=== PATIENT | female | born 1990 | race Caucasian/White ===

== ENCOUNTER 2017-11-18 00:28 | Emergency (ER) | payer OTHER ==
[~2017-11-18] VITALS: Ht 162.6 cm; Wt 101.5 kg
[~2017-11-18 00:28] MED LIST: ALBU1AER9 INH
[2017-11-18 00:34] VITALS: TEMP 36.6; Ht 162.6 cm; Wt 101.5 kg
[2017-11-18] MEDS ORDERED: SODIUM CHLORIDE 0.9% 1000ML 1,000 ML IV STA (00:42)
[2017-11-18 01:12] LABS: BASO % 0.3 %; BASO ABS # 0.02 K/uL (0-0.2); EOS % 4.2 %; EOS ABS # 0.29 K/uL (0-0.5); HEMOGLOBIN 12.9 g/dL (12.0-16.0); IG# 0.01 K/uL (0.00-0.02); LYMPH % 35.1 %; LYMPH ABS # 2.42 K/uL (1.2-3.4); MEAN CORPUSCULAR HGB CONC 34.9 g/dl (32-36); MEAN PLATELET VOLUME 8.9 fL (7.4-10.4); MONO % 6.7 %; MONO ABS # 0.46 K/uL (0.11-0.59); NEUT % 53.6 %; NEUT ABS # 3.69 K/uL (1.4-6.5); PLATELET COUNT 244 K/uL (130-400); RED CELL DISTRIBUTION WIDTH CV 13.1 % (11.5-14.5); RED CELL DISTRIBUTION WIDTH SD 41.2 fL (36.4-46.3); WHITE BLOOD COUNT 6.89 K/uL (4.8-10.8)
[2017-11-18 01:22] LABS: PTT PATIENT 28.1 SECONDS (21.0-31.0)
[2017-11-18 01:29] LABS: ALBUMIN 3.1 gm/dl (3.4-5.0); CALCIUM 8.5 mg/dl (8.5-10.1); CREATININE 0.66 mg/dl (0.60-1.20); POTASSIUM 3.4 mmol/L (3.5-5.1)
[2017-11-18 01:31] LABS: TOTAL PROTEIN 7.2 gm/dl (6.4-8.2)
[2017-11-18 01:33] VITALS: O2SAT 98
[2017-11-18] MEDS ORDERED: ONDA4TAB46 PO (01:58)
[2017-11-18] MEDS ORDERED: POTASSIUM CHLORIDE 10 MEQ TABCR PO STA (01:58)
[2017-11-18] MEDS ORDERED: PYRI1TAB40 PO (02:00)
[2017-11-18] MEDS ORDERED: BUSP15TA70 PO (02:02)
[2017-11-18] MEDS ORDERED: DOCU-94 PO (02:04)
[2017-11-18] MEDS ORDERED: PEDICHW44 PO (02:05)
--- NOTE | 2017-11-18 02:58 | EMERGENCY ROOM VISIT NOTE ---
History First contact with patient: 00:38 Chief Complaint: ED VAG BLEEDING Stated Complaint: 11 WKS , BLEEDING History of Present Illness The patient is a 27 year old female who presents to the Emergency Room with complaints of vaginal bleeding cramping for the past few hours who is currently 11 weeks . This is her third . 2 living children. She follows with [facility]. She had some spotting last week and had a normal pelvic ultrasound that showed a viable IUP. She has never needed RhoGam in the past. Patient denies chest pain, dyspnea, fever, chills, vomiting, diarrhea, urinary symptoms. No injury to the area. Review of Systems An 10 system review of systems was completed with positives and pertinent negatives listed in the HPI. Past Medical/Surgical History Medical Problems: (1) Abnormal vaginal bleeding (2) Asthma (3) Bronchitis (4) Heart murmur Surgical Problems: (1) Previous section Social History Smoking Status: Never Smoker Alcohol Use: occasionally Marital Status: Housing Status: lives with family Occupation Status: employed Current/Historical Medications Scheduled Buspirone Hcl (Buspar), 7.5 MG PO BID Ondansetron Hcl (Zofran), 4 MG PO TID Pediatric Multiple Vitamins W/ (Flintstones Plus Iron), 2 TABS PO DAILY Pyridoxine HCl (Vitamin B6), 25 MG PO TID Scheduled PRN Docusate Sodium (Colace), 100-200 MG PO DAILY PRN for Constipation Physical Exam Vital Signs Date Time Temp Pulse Resp B/P (MAP) Pulse Ox O2 Delivery O2 Flow Rate FiO2 11/18/17 02:11 75 16 149/78 98 Room Air 11/18/17 01:35 76 11/18/17 01:33 98 Room Air 11/18/17 01:33 80 19 148/76 98 Room Air 11/18/17 00:34 36.6 92 20 130/79 98 Room Air Physical Exam VITALS: Vitals are noted on the nurse's note and reviewed by myself. Vital signs stable. GENERAL: Pleasant female in tears, in no acute distress, nondiaphoretic, well- developed well-nourished. SKIN: Capillary reflex less than 2 seconds. HEENT: Normocephalic. PERRLA. EOMI. Nares patent. Mucous membranes moist. Neck is supple without nuchal rigidity. HEART: Regular rate and rhythm without murmurs gallops or rubs. LUNGS: Clear to auscultation bilaterally without wheezes, rales or rhonchi. No retractions or accessory muscle use. ABDOMEN: Positive bowel sounds x 4. Normal tympanic percussion. Soft, nontender, without masses or organomegaly. Perez sign negative. No guarding or rebound tenderness. No CVA tenderness MUSCULOSKELETAL: No gross musculoskeletal defects. No pedal edema. No calf tenderness. NEURO: Patient was alert and oriented to person place and time. Normal sensation to light and sharp touch. No focal neurological deficits. Medical Decision & Procedures Laboratory Results 11/18/17 01:02 Red Blood Count 4.30, Mean Corpuscular Volume 86.0, Mean Corpuscular Hemoglobin 30.0, Mean Corpuscular Hemoglobin Concent 34.9, Mean Platelet Volume 8.9, Neutrophils (%) (Auto) 53.6, Lymphocytes (%) (Auto) 35.1, Monocytes (%) (Auto) 6.7, Eosinophils (%) (Auto) 4.2, Basophils (%) (Auto) 0.3, Neutrophils # (Auto) 3.69, Lymphocytes # (Auto) 2.42, Monocytes # (Auto) 0.46, Eosinophils # (Auto) 0.29, Basophils # (Auto) 0.02 11/18/17 01:02 Test 11/18/17 01:02 11/18/17 02:00 White Blood Count 6.89 K/uL (4.8-10.8) Red Blood Count 4.30 M/uL (4.2-5.4) Hemoglobin 12.9 g/dL (12.0-16.0) Hematocrit 37.0 % (37-47) Mean Corpuscular Volume 86.0 fL (80-100) Mean Corpuscular Hemoglobin 30.0 pg (25-34) Mean Corpuscular Hemoglobin Concent 34.9 g/dl (32-36) Platelet Count 244 K/uL (130-400) Mean Platelet Volume 8.9 fL (7.4-10.4) Neutrophils (%) (Auto) 53.6 % Lymphocytes (%) (Auto) 35.1 % Monocytes (%) (Auto) 6.7 % Eosinophils (%) (Auto) 4.2 % Basophils (%) (Auto) 0.3 % Neutrophils # (Auto) 3.69 K/uL (1.4-6.5) Lymphocytes # (Auto) 2.42 K/uL (1.2-3.4) Monocytes # (Auto) 0.46 K/uL (0.11-0.59) Eosinophils # (Auto) 0.29 K/uL (0-0.5) Basophils # (Auto) 0.02 K/uL (0-0.2) RDW Standard Deviation 41.2 fL (36.4-46.3) RDW Coefficient of Variation 13.1 % (11.5-14.5) Immature Granulocyte % (Auto) 0.1 % Immature Granulocyte # (Auto) 0.01 K/uL (0.00-0.02) Prothrombin Time 10.4 SECONDS (9.0-12.0) Prothromb Time International Ratio 1.0 (0.9-1.1) Activated Partial Thromboplast Time 28.1 SECONDS (21.0-31.0) Partial Thromboplastin Ratio 1.1 Anion Gap 7.0 mmol/L (3-11) Est Creatinine Clear Calc Drug Dose 147.1 ml/min Estimated GFR () 139.3 Estimated GFR (Non- 120.2 BUN/Creatinine Ratio 14.0 (10-20) Calcium Level 8.5 mg/dl (8.5-10.1) Total Bilirubin 0.2 mg/dl (0.2-1) Aspartate Amino Transf (AST/SGOT) 14 U/L (15-37) Alanine Aminotransferase (ALT/SGPT) 21 U/L (12-78) Alkaline Phosphatase 59 U/L (45-117) Total Protein 7.2 gm/dl (6.4-8.2) Albumin 3.1 gm/dl (3.4-5.0) Globulin 4.1 gm/dl (2.5-4.0) Albumin/Globulin Ratio 0.8 (0.9-2) Human Chorionic Gonadotropin, Quant 19284 mIU/mL Urine Color YELLOW Urine Appearance CLEAR (CLEAR) Urine pH 5.5 (4.5-7.5) Urine Specific [place] 1.015 (1.000-1.030) Urine Protein NEG (NEG) Urine Glucose (UA) NEG (NEG) Urine Ketones NEG (NEG) Urine Occult Blood 3+ (NEG) Urine Nitrite NEG (NEG) Urine Bilirubin NEG (NEG) Urine Urobilinogen NEG (NEG) Urine Leukocyte Esterase NEG (NEG) Urine WBC (Auto) 1-5 /hpf (0-5) Urine RBC (Auto) 0-4 /hpf (0-4) Urine Hyaline Casts (Auto) 0 /lpf (0-5) Urine Epithelial Cells (Auto) >30 /lpf (0-5) Urine Bacteria (Auto) NEG (NEG) Medications Administered Medications (Trade) Dose Ordered Sig/Farhat Route Start Time Stop Time Status Last Admin Dose Admin Sodium Chloride 1,000 ml @ 999 mls/hr Q1H1M STAT IV 11/18/17 00:42 11/18/17 01:42 DC 11/18/17 01:12 999 MLS/HR Potassium Chloride (Klor-Con M10) 10 meq NOW STAT PO 11/18/17 01:58 11/18/17 01:59 DC 11/18/17 02:04 10 MEQ ED Course Prior records/ancillary studies reviewed. Triage Nursing notes reviewed. The patient's history was concerning for vaginal bleeding and abdominal pain. Differential diagnosis: Etiologies such as miscarriage, incomplete miscarriage, subchorionic hemorrhage , ectopic , dysfunction uterine bleeding, bleeding dyscrasia, trauma, infection, as well as others were entertained. Physical examination: As above. Vitals signs revealed stable. ER treatment provided: IV fluids On reassessment the patient felt better. Diagnostic interpretation by me: The labs revealed the patient to the Rh O+. CBC stable Urinalysis revealed no sign of infection. [place] [address] Imaging studies: Ultrasound as above US OB 1st TRIMESTER: Single live intrauterine gestation at 11 weeks 5 days based on crown-rump length. heart rate 172 bpm. Yolk sac is visualized and normal. Cervix appears closed. Posterior aspect the uterus is somewhat bulbous in appearance, possibly representing a [place] contraction. Recommend close attention to this on follow-up exams. Bilateral ovaries not visualized. Radiologist: Jung Abdul MD This appears to be consistent with threatened miscarriage. by the evaluation outlined above emergent etiologies such as bleeding dyscrasia, ectopic , trauma, as well as others were deemed relatively unlikely. Patient was neurovascularly and neurologically intact. She is well-appearing. She was afebrile nontoxic. She did not have an acute abdomen on exam. She was not hemorrhaging. She was advised no strenuous activity or intercourse until cleared by PUBLICITY AGENT. She is advised to call in the morning to make a follow-up within the next day or 2 with OB or to return to the ER meaty for heavy bleeding , pain, fevers, worsening signs or symptoms or as needed. The pt informed about the findings as listed above. All questions were answered and pleased with the treatment. Return instructions were outlined and the patient was discharged in stable condition. Referral: The patient was referred to PUBLICITY AGENT for follow-up in 2 to 3 days for a recheck of her current condition. Case reviewed with my attending The chart was completed utilizing [employer] Speech voice recognition software. Grammatical errors, random word insertions, pronoun errors, and incomplete sentences are an occassional consequence of this system due to software limitations, ambient noise, and hardware issues. Any formal questions or concerns about the content, text, or information contained within the body of this dictation should be directly addressed to the physician bilingual executive assistant for clarification. Medical Decision As above Medication Reconcilliation Current Medication List: was personally reviewed by me Blood Pressure Screening Patient's blood pressure: Normal blood pressure Impression Primary Impression: Threatened miscarriage Additional Impression: Hypokalemia Departure Information Dispostion Home / Self-Care Condition GOOD Referrals No Doctor, Assigned (PCP) Patient Instructions My [facility] Additional Instructions Rest. Stay well hydrated. No strenuous activity or intercourse until cleared by PUBLICITY AGENT. Acetaminophen(Tylenol) may be used for fever or pain. Use 1000mg every six hours as needed. Avoid using more than 3000mg in a 24 hour period. Rest and drink plenty of fluids as tolerated. Continue current medications. Return to the ER immediately for worsening or persistent heavy vaginal bleeding , abdominal pain, vomiting, fevers, chest pains, difficulty breathing, worsening of your condition, or as needed. Follow up with your PUBLICITY AGENT in 2-3 days for a recheck of your current condition. Problem Qualifiers
[2017-11-18 03:00] VITALS: BP 138/78; PULSE 80; O2SAT 98
--- NOTE | 2017-11-18 06:29 | DIAGNOSTIC IMAGING REPORT ---
<14 WKS SINGLE CLINICAL HISTORY: 11 wks preg, bleed pain TECHNIQUE: Ultrasound COMPARISON STUDY: None FINDINGS: Single, viable intrauterine . Estimated gestational age 11 weeks 5 days. A heart rate is confirmed at 172 bpm. IMPRESSION: Single, viable intrauterine of 11 weeks 5 days gestational age. The above report was generated using voice recognition software. It may contain grammatical, syntax or spelling errors. Electronically signed by: Diaz Rios M.D. 11/18/2017 6:27 AM Dictated Date/Time: 11/18/2017 6:27 AM
== END 2017-11-18 03:00 | disposition home or self-care (01) ==
LOC: C.EDB 00:29
DX: O20.0 Threatened abortion (principal); O99.281 Endocrine, nutritional and metabolic diseases complicating pregnancy, first trimester; E87.6 Hypokalemia; Z3A.11 11 weeks gestation of pregnancy

== ENCOUNTER 2018-04-22 16:45 | Outpatient (CLI) | payer OTHER ==
[~2018-04-22 16:45] MED LIST changes: -ALBU1AER9 INH; +BUSP15TA70 PO; +DOCU-94 PO; +ONDA4TAB46 PO; +PEDICHW44 PO; +PYRI1TAB40 PO
--- NOTE | 2018-04-22 18:45 | Progress Note ---
Progress Note Date of Service Apr 22, 2018. Progress Note Outpatient Note 28 F P2002 at 33.2 weeks seen on L&D for increased pressure. No active regular contractions on monitor. FHT Cat 1. No RUQ or abdominal pain. No edema of lower extremities. BP stable and urine protein is negative. Cervix closed and thick. Will discharge home with follow up in office next week.
== END 2018-04-22 18:50 | disposition home or self-care (01) ==
LOC: C.LD 16:45 → C.OPB 16:45
PROVIDERS: ATTEND Obstetrics & Gynecology
DX: O26.893 Other specified pregnancy related conditions, third trimester (principal); R10.9 Unspecified abdominal pain; Z3A.33 33 weeks gestation of pregnancy

== ENCOUNTER 2023-10-29 19:28 | Inpatient (IN) ==
[2023-10-29 20:13] LABS: Basophils # (auto) 0.06 K/uL (0.00-0.20); Basophils % (auto) 0.6 %; Eosinophils # (auto) 0.22 K/uL (0.00-0.50); Eosinophils % (auto) 2.4 %; Hematocrit (blood only) 33.6 % (37.0-47.0); Hemoglobin 10.8 g/dl (12.0-16.0); Immature Granulocytes # (auto) 0.02 K/uL (0.01-0.20); Immature Granulocytes % (auto) 0.2 %; Lymphocytes # (auto) 3.08 K/uL (1.20-3.40); Lymphocytes % (auto) 32.9 %; Mean Corpuscular Hemoglobin 26.5 pg (25.0-34.0); Mean Corpuscular Hgb Conc 32.1 g/dL (32.0-36.0); Mean Corpuscular Volume 82.6 fL (80.0-100.0); Mean Platelet Volume 8.8 fL (9.4-12.4); Monocytes # (auto) 0.65 K/uL (0.11-0.59); Neutrophils # (auto) 5.32 K/uL (1.40-6.50); Neutrophils % (auto) 56.9 %; Platelet Count 383 K/uL (130-400); RDW Coefficient of Variation 14.3 % (11.5-14.5); RDW Standard Deviation 42.8 fL (36.4-46.3); Red Blood Count 4.07 M/uL (4.20-5.40); White Blood Count 9.35 K/ul (4.8-10.8)
[2023-10-29 20:27] LABS: Partial Thromboplastin Ratio 1.3; Partial Thromboplastin Time 37 Seconds (21-31); Prothrombin Time 10.9 Seconds (9.0-12.0)
[2023-10-29 20:29] LABS: Anion Gap 10 (3-11); Bilirubin,Total 0.2 mg/dl (0.2-1.0); Calcium 9.1 mg/dl (8.6-10.3); Carbon Dioxide 22 mmol/L (21-32); Chloride 104 mmol/L (98-107); Potassium 3.7 mmol/L (3.5-5.1); Sodium 136 mmol/L (136-145)
[2023-10-29 20:35] LABS: Alanine Aminotransferase 12 U/L (7-52); Albumin Globulin Ratio 1.1 (0.9-2); Alkaline Phosphatase 76 U/L (34-104); Aspartate Aminotransferase 14 U/L (13-39); BUN Creatinine Ratio 16.9 (10-20); Blood Urea Nitrogen 12 mg/dl (6-23); Creatinine Clr Calc Pharmacy 127.3 ml/min; Est GFR (African American) 128.8 ml/min; Est GFR (Non-African American) 111.1 ml/min; Globulin 3.5 gm/dl (2.5-4.0); Glucose 130 mg/dl (70-99(Fasting)); Total Protein 7.5 gm/dl (6.0-8.3)
[2023-10-29 20:40] LABS: Troponin I High Sensitivity < 2.3 pg/ml (0-14)
[2023-10-29] MEDS: SODIUM CHLORIDE 0.9% 1,000 ML IV ONE (22:17)
[2023-10-29] MEDS: METOCLOPRAMIDE HCL INJ 5 MG/ML 2 ML VIAL IV STA (22:19)
[2023-10-29] MEDS: diphenhydrAMINE 50 MG/ML VIAL IV STA (22:20)
--- NOTE | 2023-10-29 23:20 | Emergency Department Note ---
History of Present Illness General Chief complaint: Pain (Generalized) Stated complaint: POST SX HAS HEADACHE Time Seen by Provider: 10/29/23 21:59 History of Present Illness Maximum Pain Intensity: 7 This 33-year-old female had a hysterectomy 2 weeks ago by [employer] presents the ER complaining of headache, chest pain and right calf pain. She states she called her OB and was advised to come to the ER. Patient denies fever, chills, abdominal pain, flank pain, flulike illness, neck stiffness. Home Medications Medication Instructions Recorded Confirmed Type acetaminophen 500 mg tablet 1,000 mg PO Q6H PRN Fever Or Pain 07/31/20 10/30/23 History bupropion HCl 150 mg tablet,12 hr 150 mg PO BID 10/08/23 10/30/23 History sustained-release (Wellbutrin SR) fluoxetine 60 mg tablet 60 mg PO QPM 10/08/23 10/30/23 History naltrexone 50 mg tablet 50 mg PO BID 10/08/23 10/30/23 History rizatriptan 10 mg tablet (Maxalt) 10 mg PO DIRECTED PRN Migraine 10/08/23 10/30/23 History Headache topiramate 25 mg tablet (Topamax) 25 mg PO QPM 10/08/23 10/30/23 History trazodone 50 mg tablet 50 mg PO HS PRN Sleep 10/08/23 10/30/23 History Allergies Allergy/AdvReac Type Severity Reaction Status Date / Time latex Allergy Intermediate Hives Verified 10/30/23 00:44 Past Med/Surg History Medical History Abnormal uterine bleeding (AUB) History of migraine Anxiety Obesity per pt, reason for naltrexone History of blood transfusion 2007 with delivery Heart murmur History of years ago with only; no current murmur per patient Surgical History History of bilateral breast implants History of foot surgery Rt Nausea and vomiting after administration of anesthetic agent Patient reports nausea with Anesthesia History of section x3 Family History Father Family history of diabetes mellitus Social History Smoking Status: Never smoker Second Hand Exposure: Yes; Do You Dip or Chew Tobacco: No; Hx Alcohol Use: Yes Hx Substance Use: No Preferred Language: Somali Communication Ability: Effective Stem Maker Required: No Beliefs That Will Affect Care: None marital status: Current Living Situation: Family Feels Safe at Home: Yes Assistive Devices: Glasses Review of Systems A total of 10 systems reviewed and were otherwise negative Physical Exam Vital Signs Vital Signs - 24 hr 10/29/23 19:43 10/29/23 22:03 10/29/23 22:15 Temperature 37.2 C Temperature Source Temporal Artery Scan Pulse Rate 92 H Pulse Rate [Apical] 75 Pulse Rhythm [Apical] Regular Pulse Strength [Apical] Normal Respiratory Rate 16 19 Respiratory Effort / Characteristics Non-Labored Spontaneous Respiratory Depth Normal Respiratory Pattern Regular Blood Pressure 148/86 H Blood Pressure [Right Arm] 150/83 H Blood Pressure Mean 106 Blood Pressure Mean [Right Arm] 105 Blood Pressure Position [Right Arm] Semi-fowlers Pulse Oximetry 99 98 98 Oxygen Delivery Method Room Air Room Air Room Air Sepsis New/Unexplained Change in Mental Status No Sepsis Action Taken by Nursing No Action Required 10/29/23 22:23 10/30/23 00:41 10/30/23 00:44 Temperature Temperature Source Pulse Rate 80 Pulse Rate [Apical] 74 Pulse Rhythm [Apical] Pulse Strength [Apical] Respiratory Rate 18 Respiratory Effort / Characteristics Respiratory Depth Respiratory Pattern Blood Pressure Blood Pressure [Right Arm] 112/78 Blood Pressure Mean Blood Pressure Mean [Right Arm] 89 Blood Pressure Position [Right Arm] Sitting Pulse Oximetry 98 98 Oxygen Delivery Method Room Air Room Air Sepsis New/Unexplained Change in Mental Status Sepsis Action Taken by Nursing VITALS: Vitals are noted on the nurse's note and reviewed by myself. Vital signs stable. GENERAL: Pleasant female, in no acute distress, nondiaphoretic, well-developed well-nourished. SKIN: Capillary reflex less than 2 seconds. HEENT: Normocephalic. PERRLA. EOMI. Nares patent. Mucous membranes moist. Neck is supple without nuchal rigidity. HEART: Regular rate and rhythm LUNGS: Clear to auscultation bilaterally without wheezes, rales or rhonchi. No retractions or accessory muscle use. ABDOMEN: Positive bowel sounds x 4. Normal tympanic percussion. Soft, nontender, without masses or organomegaly. Perez sign negative. No guarding or rebound tenderness. no CVA tenderness MUSCULOSKELETAL: No gross musculoskeletal defects. Right calf tender, left calf nontender NEURO: Patient was alert and oriented to person place and time. No focal neurological deficits. Course Administered Medications Discontinued Medications Diphenhydramine HCl (Diphenhydramine 50 Mg/Ml Vial) 25 mg IV NOW STA Stop: 10/29/23 22:11 Last Admin: 10/29/23 22:20 Dose: 25 mg Documented By: JANES Sodium Chloride (Nss) 1,000 mls @ 999 mls/hr IV .Q1H1M ONE Stop: 10/29/23 23:10 Last Infusion: 10/30/23 00:45 Dose: Infused Documented By: Admin: 10/29/23 22:17 Dose: 999 mls/hr Documented By: JANES Acetaminophen (Ofirmev) 1,000 mg in 100 mls @ 400 mls/hr IV NOW STA Stop: 10/29/23 23:47 Last Infusion: 10/30/23 01:13 Dose: Infused Documented By: Admin: 10/30/23 00:27 Dose: 400 mls/hr Documented By: ALFIE Ioversol (Optiray 320 125ml) 117 ml IV ONCE ONE Stop: 10/29/23 23:25 Last Admin: 10/29/23 23:25 Dose: 117 ml Documented By: NATANAEL Metoclopramide HCl (Metoclopramide Hcl Inj 5 Mg/Ml 2 Ml Vial) 10 mg IV NOW STA Stop: 10/29/23 22:11 Last Admin: 10/29/23 22:19 Dose: 10 mg Documented By: JANES Medical Decision Making Medical Records Attestation: I reviewed the patient's medical records. Home Medications Current Medication List: was personally reviewed by me Laboratory Data Attestation: I reviewed the patient's lab results. 10/29/23 20:01 10/29/23 20:01 Lab Results 10/29/23 10/30/23 10/30/23 Range/Units 20:01 00:04 00:56 WBC 9.35 (4.8-10.8) K/ul RBC 4.07 L (4.20-5.40) M/uL Hgb 10.8 L (12.0-16.0) g/dl Hct 33.6 L (37.0-47.0) % MCV 82.6 (80.0-100.0) fL MCH 26.5 (25.0-34.0) pg MCHC 32.1 (32.0-36.0) g/dL RDW Std Deviation 42.8 (36.4-46.3) fL RDW Coeff of Clint 14.3 (11.5-14.5) % Plt Count 383 (130-400) K/uL MPV 8.8 L (9.4-12.4) fL Immature Gran % (Auto) 0.2 % Neut % (Auto) 56.9 % Lymph % (Auto) 32.9 % [place] % (Auto) 7.0 % Eos % (Auto) 2.4 % Baso % (Auto) 0.6 % Neut # (Auto) 5.32 (1.40-6.50) K/uL Lymph # (Auto) 3.08 (1.20-3.40) K/uL [place] # (Auto) 0.65 H (0.11-0.59) K/uL Eos # (Auto) 0.22 (0.00-0.50) K/uL Baso # (Auto) 0.06 (0.00-0.20) K/uL Immature Gran # (Auto) 0.02 (0.01-0.20) K/uL PT 10.9 (9.0-12.0) Seconds INR 1.0 (0.9-1.1) APTT 37 H (21-31) Seconds PTT Ratio 1.3 Sodium 136 (136-145) mmol/L Potassium 3.7 (3.5-5.1) mmol/L Chloride 104 (98-107) mmol/L Carbon Dioxide 22 (21-32) mmol/L Anion Gap 10 (3-11) BUN 12 (6-23) mg/dl Creatinine 0.71 (0.6-1.2) mg/dl Est Cr Clr Drug Dosing 127.3 ml/min Est GFR ( Amer) 128.8 ml/min Est GFR (Non-Af Amer) 111.1 ml/min BUN/Creatinine Ratio 16.9 (10-20) Glucose 130 H (70-99(Fasting)) mg/dl Calcium 9.1 (8.6-10.3) mg/dl Total Bilirubin 0.2 (0.2-1.0) mg/dl AST 14 (13-39) U/L ALT 12 (7-52) U/L Alkaline Phosphatase 76 (34-104) U/L Troponin I High Sens < 2.3 < 2.3 (0-14) pg/ml B-Natriuretic Peptide 25 (0-100) pg/ml Total Protein 7.5 (6.0-8.3) gm/dl Albumin 4.0 (3.4-5.0) gm/dl Globulin 3.5 (2.5-4.0) gm/dl Albumin/Globulin Ratio 1.1 (0.9-2) Urine Color Dark Yellow Urine Appearance Cloudy A (Clear) Urine pH 5.5 (4.5-7.5) Ur Specific [place] 1.040 H (1.000-1.030) Urine Protein Negative (Negative) Urine Glucose (UA) Negative (Negative) Urine Ketones Trace H (Negative) Urine Blood 2+ H (Negative) Urine Nitrite Negative (Negative) Urine Bilirubin Negative (Negative) Urine Urobilinogen Negative (Negative) Ur Leukocyte Esterase Trace H (Negative) Urine WBC (Auto) 10-30 H (0-5) /hpf Urine RBC (Auto) 5-10 H (0-4) /hpf U Hyaline Cast (Auto) 5-10 H (0-5) /lpf U Epithel Cells (Auto) >30 H (0-5) /lpf Urine Bacteria (Auto) Negative (Negative) Urine Crystals Not Reportable Calcium Oxalate Crystal Present A (None Prsent) Imaging Data Attestation: I personally reviewed and interpreted this imaging study as follows: Radiologist's Impression: Chest CTA 10/29/23 22:10 Exam(s): CTA CHEST IV Amt: 117 ml opti 320 EXAM: CT Angiography Chest With Intravenous Contrast CLINICAL HISTORY: PE. TECHNIQUE: Axial computed tomographic angiography images of the chest with intravenous contrast. CTDI is 38 mGy and DLP is 846.84 mGy-cm. Automated exposure control was utilized for the study. A dose lowering technique was utilized adhering to the principles of ALARA. MIP reconstructed images were created and reviewed. COMPARISON: No relevant prior studies available. FINDINGS: Pulmonary arteries: Unremarkable. No pulmonary embolus. Aorta: No acute findings. No thoracic aortic aneurysm. Lungs: Interseptal thickening is concerning for pulmonary edema. No mass. Pleural space: Unremarkable. No significant effusion. No pneumothorax. Heart: Unremarkable. No cardiomegaly. No significant pericardial effusion. No evidence of RV dysfunction. Bones/joints: There are degenerative changes of the spine. No acute fracture. No dislocation. Soft tissues: Bilateral breast prosthesis are noted. Lymph nodes: Unremarkable. No enlarged lymph nodes. IMPRESSION: 1. No pulmonary embolus. 2. Interseptal thickening is concerning for pulmonary edema. Electronically signed by: Lizzy Laura MD 10/29/23 23:[address] 10/29/23 22:10 Exam(s): CT HEAD Without Contrast EXAM: CT Head Without Intravenous Contrast CLINICAL HISTORY: JEAN. TECHNIQUE: Axial computed tomography images of the head/brain without intravenous contrast. CTDI is 35.79 mGy and DLP is 546.36 mGy-cm. Automated exposure control was utilized for the study. A dose lowering technique was utilized adhering to the principles of ALARA. COMPARISON: No relevant prior studies available. FINDINGS: Brain: Unremarkable. No significant white matter disease. No intracranial hemorrhage, mass-effect or midline shift. No abnormal extra axial fluid. No evidence of acute infarct. Ventricles: Unremarkable. No ventriculomegaly. Bones/joints: Unremarkable. No acute fracture. Soft tissues: Unremarkable. Sinuses: Unremarkable as visualized. No acute sinusitis. Mastoid air cells: Unremarkable as visualized. No mastoid effusion. IMPRESSION: No acute intracranial finding. Electronically signed by: Lizzy Laura MD 10/29/23 23:43 PM Venous Doppler Study 10/30/23 22:10 Exam(s): US VENOUS RIGHT LOWER EXTREMITY EXAM: US Duplex Right Lower Extremity Veins CLINICAL HISTORY: Pain. TECHNIQUE: Real-time duplex ultrasound scan of the right lower extremity veins integrating B-mode two-dimensional vascular structure, Doppler spectral analysis, color flow Doppler imaging and compression. COMPARISON: No relevant prior studies available. FINDINGS: Deep veins: Unremarkable. No DVT in the visualized common femoral, femoral, proximal deep femoral or popliteal veins. The veins demonstrate normal color flow, are normally compressible, with normal phasic flow and/or augmentation response. Superficial veins: Unremarkable. No thrombus in the visualized great saphenous vein. Soft tissues: No acute findings. No popliteal cyst. IMPRESSION: No deep vein thrombosis of the right lower extremity. Electronically signed by: Lizzy Laura MD 10/30/23 00:32 AM MDM Narrative Prior records/ancillary studies reviewed. Triage Nursing notes reviewed. Additional history obtained from family. The patient's history was concerning for headache, calf pain and chest pain. Differential diagnosis: Etiologies such as postsurgical complication, migraine, neurologic, cardiac ischemia, aortic dissection, pulmonary embolism, pneumonia, pneumothorax, musculoskeletal, infections, pericarditis, myocarditis, esophageal rupture, gastrointestinal, as well as others were entertained. Physical examination: As above. ER treatment provided: An order was placed for continuous cardiac monitoring. The monitor shows a rate of 60-100 with a sinus rhythm per my interpretation. Reglan Benadryl IV fluids were ordered On reassessment the patient felt better. Diagnostic interpretation by me: The electrocardiogram was negative for pathologic change. Ordered for chest pain EKG: Normal sinus, normal intervals, no acute ST-T wave changes. Impression normal sinus rhythm independently interpreted by myself I think arrhythmia is unlikely. EKG shows normal sinus rhythm with no interval abnormalities such as QT prolongation or WPW. There are no findings to suggest Brugada syndrome. Cardiac monitoring in the emergency department reveals no tachycardic or bradycardic dysrhythmia. Hypertrophic cardiomyopathy was considered but there are no clear historical elements pointing toward this. EKG is not suggestive. The QRS voltage is not extremely large and there are no suggestive Q waves. The labs Independently Interpreted by myself revealed negative troponin x 2. Stable H&H Normal BNP Imaging studies: Chest x-ray with no acute consolidation, pneumothorax or free air per my endocrine interpretation CTA was reviewed Ultrasound negative for DVT Head CT was negative. HEART SCORE: Hx: high/mod/low suspicion: 0 ECG: ST depression/nonspecific changes/normal: 0 Age: Greater than 65/45-64/less than 45: 0 Risk factors: (Hypertension, hyperlipidemia, diabetes, coronary disease, tobacco use, cocaine use): 0 Troponin: Greater than 2 times normal limits/1-2 times normal limits/normal: 0 Total: 0 Consultation: A consultation was placed with the hospitalist. The case was discussed and diagnostics were reviewed. The patient was evaluated in the ER for further treatment. Exam and history seem consistent with new heart failure on imaging. Patient was not hypoxic. Initial troponin was negative. EKG is nonischemic medicine is consulted and case discussed. Patient be admitted to the medical service for further evaluation and workup.. By the evaluation outlined above emergent etiologies such as aortic dissection, pulmonary embolism, pneumonia, pneumothorax, infections, pericarditis, myocarditis, gastrointestinal, as well as others were deemed relatively unlikely. The pt informed about the findings as listed above. All questions were answered and pleased with the treatment. The chart was completed utilizing [employer] Speech voice recognition software. Grammatical errors, random word insertions, pronoun errors, and incomplete sentences are an occassional consequence of this system due to software limitations, ambient noise, and hardware issues. Any formal questions or concerns about the content, text, or information contained within the body of this dictation should be directly addressed to the physician construction management assistant for clarification. Impression & Plan New onset of congestive heart failure, Chest pain, Headache, Acute leg pain Discharge Plan Visit Data Chief Complaint: Pain (Generalized) Stated Complaint: POST SX HAS HEADACHE ED Provider: Enrrique Fernández ED Midlevel Provider: Kaylah Valenzuela Discharge Problem: New onset of congestive heart failure, Chest pain, Headache, Acute leg pain Patient Disposition: Admitted As Inpatient Condition: Good Forms Stand Alone Forms: Balance Financial Prescriptions Prescriptions: No Action acetaminophen 500 mg Tablet 1,000 mg PO Q6H PRN (Reason: Fever Or Pain) bupropion HCl [Wellbutrin SR] 150 mg Tablet Sustained-Release 12 Hr 150 mg PO BID trazodone 50 mg Tablet 50 mg PO HS PRN (Reason: Sleep) Rx Instructions: PER PT "HAVE BEEN TAKING ALMOST EVERY NIGHT". naltrexone 50 mg Tablet 50 mg PO BID rizatriptan [Maxalt] 10 mg Tablet 10 mg PO DIRECTED PRN (Reason: Migraine Headache) Rx Instructions: take 1 tab at onset of headache; if no relief may repeat 1 tab after at least 2 hrs; max = 3 tabs/24 hr topiramate [Topamax] 25 mg Tablet 25 mg PO QPM fluoxetine 60 mg Tablet 60 mg PO QPM Referrals Referrals: David Pinzon MD [Primary Care Provider] -
[2023-10-29] MEDS: OPTIRAY 320 125ml IV ONE (23:25)
--- NOTE | 2023-10-29 23:43 | CT Scan Report ---
Exam(s): CTA CHEST IV Amt: 117 ml opti 320 EXAM: CT Angiography Chest With Intravenous Contrast CLINICAL HISTORY: PE. TECHNIQUE: Axial computed tomographic angiography images of the chest with intravenous contrast. CTDI is 38 mGy and DLP is 846.84 mGy-cm. Automated exposure control was utilized for the study. A dose lowering technique was utilized adhering to the principles of ALARA. MIP reconstructed images were created and reviewed. COMPARISON: No relevant prior studies available. FINDINGS: Pulmonary arteries: Unremarkable. No pulmonary embolus. Aorta: No acute findings. No thoracic aortic aneurysm. Lungs: Interseptal thickening is concerning for pulmonary edema. No mass. Pleural space: Unremarkable. No significant effusion. No pneumothorax. Heart: Unremarkable. No cardiomegaly. No significant pericardial effusion. No evidence of RV dysfunction. Bones/joints: There are degenerative changes of the spine. No acute fracture. No dislocation. Soft tissues: Bilateral breast prosthesis are noted. Lymph nodes: Unremarkable. No enlarged lymph nodes. IMPRESSION: 1. No pulmonary embolus. 2. Interseptal thickening is concerning for pulmonary edema. Electronically signed by: Lizzy Laura MD 10/29/23 23:42 PM
--- NOTE | 2023-10-29 23:44 | CT Scan Report ---
Exam(s): CT HEAD Without Contrast EXAM: CT Head Without Intravenous Contrast CLINICAL HISTORY: JEAN. TECHNIQUE: Axial computed tomography images of the head/brain without intravenous contrast. CTDI is 35.79 mGy and DLP is 546.36 mGy-cm. Automated exposure control was utilized for the study. A dose lowering technique was utilized adhering to the principles of ALARA. COMPARISON: No relevant prior studies available. FINDINGS: Brain: Unremarkable. No significant white matter disease. No intracranial hemorrhage, mass-effect or midline shift. No abnormal extra axial fluid. No evidence of acute infarct. Ventricles: Unremarkable. No ventriculomegaly. Bones/joints: Unremarkable. No acute fracture. Soft tissues: Unremarkable. Sinuses: Unremarkable as visualized. No acute sinusitis. Mastoid air cells: Unremarkable as visualized. No mastoid effusion. IMPRESSION: No acute intracranial finding. Electronically signed by: Lizzy Laura MD 10/29/23 23:43 PM
[2023-10-30] MEDS: ACETAMINOPHEN 1,000 MG/100 ML VIAL IV STA (00:27)
--- NOTE | 2023-10-30 00:33 | Ultrasound Report ---
Exam(s): US VENOUS RIGHT LOWER EXTREMITY EXAM: US Duplex Right Lower Extremity Veins CLINICAL HISTORY: Pain. TECHNIQUE: Real-time duplex ultrasound scan of the right lower extremity veins integrating B-mode two-dimensional vascular structure, Doppler spectral analysis, color flow Doppler imaging and compression. COMPARISON: No relevant prior studies available. FINDINGS: Deep veins: Unremarkable. No DVT in the visualized common femoral, femoral, proximal deep femoral or popliteal veins. The veins demonstrate normal color flow, are normally compressible, with normal phasic flow and/or augmentation response. Superficial veins: Unremarkable. No thrombus in the visualized great saphenous vein. Soft tissues: No acute findings. No popliteal cyst. IMPRESSION: No deep vein thrombosis of the right lower extremity. Electronically signed by: Lizzy Laura MD 10/30/23 00:32 AM
[2023-10-30 01:13] LABS: Appearance Urine Cloudy (Clear); Bacteria Urine Automated Negative (Negative); Bilirubin Urine Negative (Negative); Blood Urine 2+ (Negative); Color Urine Dark Yellow; Epithelial Cell Urine Auto >30 /lpf (0-5); Glucose Urine UA Negative (Negative); Ketones Urine Trace (Negative); Leukocyte Esterase Urine Trace (Negative); Nitrite Urine Negative (Negative); Protein Urine Negative (Negative); Urobilinogen Urine Negative (Negative); pH Urine 5.5 (4.5-7.5)
[2023-10-30 01:27] LABS: Calcium Oxalate Crystals Urine Present (None Prsent)
--- NOTE | 2023-10-30 04:20 | History & Physical Report ---
Date of Service October 30, 2023 Assessment & Plan (1) Chest pain: Plan: 33-year-old female with past medical history significant for mitral valve regurgitation, obesity, dysthymia, generalized anxiety disorder who recently had a hysterectomy comes because of headache, mild chest discomfort and right leg pain started in the morning yesterday. Patient states when she came to the ER her headache was 9/10 by severity, chest pain was 1/10 with severity, right leg pain was 5 /10 in severity. Currently all the pain is resolved. Denies any blurred visions. No runny nose. No sore throat. No fever. No shortness of. No dizziness. No sweating. No nausea. Has some abdominal discomfort from recent surgery. Normal bowel movements. Normal bladder movements. Currently resting comfortably and hemodynamically stable. Imaging studies showed possible pulmonary edema. Chest pain Currently resolved EKG okay 2 sets of troponin negative CTA chest no PE but concerning for pulmonary edema Will follow serial enzymes and echo Cardiac consult in a.m. Possible pulmonary edema Patient has no shortness of breath Will follow echo Consult cardiology further recommendations Headache Currently resolved Right leg pain Currently resolved Doppler negative for DVT Dysthymia Generalized anxiety disorder Continue home meds DVT prophylaxis SCDs for now Disposition Telemetry Full code History of Present Illness Chief Complaint: Headache, chest pain, right leg pain Primary Care Provider: David Pinzon MD 33-year-old female with past medical history significant for mitral valve regurgitation, obesity, dysthymia, generalized anxiety disorder who recently had a hysterectomy comes because of headache, mild chest discomfort and right leg pain started in the morning yesterday. Patient states when she came to the ER her headache was 9/10 by severity, chest pain was 1/10 with severity, right leg pain was 5 /10 in severity. Currently all the pain is resolved. Denies any blurred visions. No runny nose. No sore throat. No fever. No shortness of. No dizziness. No sweating. No nausea. Has some abdominal discomfort from recent surgery. Normal bowel movements. Normal bladder movements. Currently resting comfortably and hemodynamically stable. Imaging studies showed possible pulmonary edema. Past medical history. As mentioned above Past surgical history. . Incision of the right foot. Likely floaters. Vaginal hysterectomy 10/15/2023. Social history. . Quit smoking in 2010. Smoked 0.5 pack a day for 5 years. No alcohol use. No drug use. Family history. Mother has allergies. Father has diabetes. Paternal grandmother had breast cancer. Allergies Allergy/AdvReac Type Severity Reaction Status Date / Time latex Allergy Intermediate Hives Verified 10/30/23 00:44 Home Medications Medication Instructions Recorded Confirmed Type acetaminophen 500 mg tablet 1,000 mg PO Q6H PRN Fever Or Pain 07/31/20 10/30/23 History bupropion HCl 150 mg tablet,12 hr 150 mg PO BID 10/08/23 10/30/23 History sustained-release (Wellbutrin SR) fluoxetine 60 mg tablet 60 mg PO QPM 10/08/23 10/30/23 History naltrexone 50 mg tablet 50 mg PO BID 10/08/23 10/30/23 History rizatriptan 10 mg tablet (Maxalt) 10 mg PO DIRECTED PRN Migraine 10/08/23 10/30/23 History Headache topiramate 25 mg tablet (Topamax) 25 mg PO QPM 10/08/23 10/30/23 History trazodone 50 mg tablet 50 mg PO HS PRN Sleep 10/08/23 10/30/23 History Past Med/Surg History Medical History Abnormal uterine bleeding (AUB) History of migraine Anxiety Obesity per pt, reason for naltrexone History of blood transfusion 2007 with delivery Heart murmur History of years ago with only; no current murmur per patient Surgical History History of bilateral breast implants History of foot surgery Rt Nausea and vomiting after administration of anesthetic agent Patient reports nausea with Anesthesia History of section x3 Family History Father Family history of diabetes mellitus Social History Smoking Status: Never smoker Second Hand Exposure: Yes; Do You Dip or Chew Tobacco: No; Hx Alcohol Use: Yes Hx Substance Use: No Preferred Language: Turkish Communication Ability: Effective Alarm Signal Operator Required: No Beliefs That Will Affect Care: None marital status: Current Living Situation: Family Feels Safe at Home: Yes Safety Concerns: Feels Safe At This Time Assistive Devices: Glasses Review of Systems Review of Systems: All systems reviewed & are unremarkable except as noted in HPI & below Physical Exam Physical Exam: General- Not in distress Head- atraumatic Eyes- PERRL. ENT- oropharynx clear Neck- supple, no JVD. Lungs- clear to auscultation no wheezing or crackles. Heart- regular rhythm; no murmur, no gallop. Abdomen- normal bowel sounds, soft, nontender, no distension Extremities- no pretibial edema, no erythema seen. Neuro- alert, oriented ; PERRL, no facial palsy; no dysarthria; moves extremities. Skin- warm & dry Results & Data Results & Data Vital Signs (Past 12 Hours) Vital Signs Temp Pulse Pulse Resp BP BP Pulse Ox 10/30/23 04:02 63 16 120/60 96 10/30/23 02:13 67 10/30/23 02:12 66 18 132/62 95 10/30/23 00:44 98 10/30/23 00:41 74 18 112/78 98 10/29/23 22:23 80 10/29/23 22:15 98 10/29/23 22:03 75 19 150/83 H 98 10/29/23 19:43 37.2 C 92 H 16 148/86 H 99 O2 Del Method 10/30/23 04:02 Room Air 10/30/23 02:13 10/30/23 02:12 Room Air 10/30/23 00:44 Room Air 10/30/23 00:41 Room Air 10/29/23 22:23 10/29/23 22:15 Room Air 10/29/23 22:03 Room Air 10/29/23 19:43 Room Air Diagnostic Findings Laboratory Results WBC 9.35 K/ul (4.8-10.8) 10/29/23 20:01 RBC 4.07 M/uL (4.20-5.40) L 10/29/23 20:01 Hgb 10.8 g/dl (12.0-16.0) L 10/29/23 20:01 Hct 33.6 % (37.0-47.0) L 10/29/23 20:01 MCV 82.6 fL (80.0-100.0) 10/29/23 20:01 MCH 26.5 pg (25.0-34.0) 10/29/23 20: MCHC 32.1 g/dL (32.0-36.0) 10/29/23 20: RDW Std Deviation 42.8 fL (36.4-46.3) 10/29/23 20: RDW Coeff of Clint 14.3 % (11.5-14.5) 10/29/23 20: Plt Count 383 K/uL (130-400) 10/29/23 20: MPV 8.8 fL (9.4-12.4) L 10/29/23 20: Immature Gran % (Auto) 0.2 % 10/29/23 20: Neut % (Auto) 56.9 % 10/29/23 20: Lymph % (Auto) 32.9 % 10/29/23 20: Milam % (Auto) 7.0 % 10/29/23 20: Eos % (Auto) 2.4 % 10/29/23 20: Baso % (Auto) 0.6 % 10/29/23 20:01 Neut # (Auto) 5.32 K/uL (1.40-6.50) 10/29/23 20:01 Lymph # (Auto) 3.08 K/uL (1.20-3.40) 10/29/23 20:01 Milam # (Auto) 0.65 K/uL (0.11-0.59) H 10/29/23 20:01 Eos # (Auto) 0.22 K/uL (0.00-0.50) 10/29/23 20:01 Baso # (Auto) 0.06 K/uL (0.00-0.20) 10/29/23 20: Immature Gran # (Auto) 0.02 K/uL (0.01-0.20) 10/29/23 20: PT 10.9 Seconds (9.0-12.0) 10/29/23 20: INR 1.0 (0.9-1.1) 10/29/23 20: APTT 37 Seconds (21-31) H 10/29/23 20: PTT Ratio 1.3 10/29/23 20: Sodium 136 mmol/L (136-145) 10/29/23 20:01 Potassium 3.7 mmol/L (3.5-5.1) 10/29/23 20:01 Chloride 104 mmol/L (98-107) 10/29/23 20:01 Carbon Dioxide 22 mmol/L (21-32) 10/29/23 20:01 Anion Gap 10 (3-11) 10/29/23 20:01 BUN 12 mg/dl (6-23) 10/29/23 20:01 Creatinine 0.71 mg/dl (0.6-1.2) 10/29/23 20: Est Cr Clr Drug Dosing 127.3 ml/min 10/29/23 20:01 Est GFR ( Amer) 128.8 ml/min 10/29/23 20:01 Est GFR (Non-Af Amer) 111.1 ml/min 10/29/23 20:01 BUN/Creatinine Ratio 16.9 (10-20) 10/29/23 20:01 Glucose 130 mg/dl (70-99(Fasting)) H 10/29/23 20: Calcium 9.1 mg/dl (8.6-10.3) 10/29/23 20: Total Bilirubin 0.2 mg/dl (0.2-1.0) 10/29/23 20: AST 14 U/L (13-39) 10/29/23 20: ALT 12 U/L (7-52) 10/29/23 20:01 Alkaline Phosphatase 76 U/L (34-104) 10/29/23 20:01 Troponin I High Sens < 2.3 pg/ml (0-14) 10/30/23 00:56 B-Natriuretic Peptide 25 pg/ml (0-100) 10/30/23 00:56 Total Protein 7.5 gm/dl (6.0-8.3) 10/29/23 20:01 Albumin 4.0 gm/dl (3.4-5.0) 10/29/23 20: Globulin 3.5 gm/dl (2.5-4.0) 10/29/23 20:01 Albumin/Globulin Ratio 1.1 (0.9-2) 10/29/23 20:01 Urine Color Dark Yellow 10/30/23 00:04 Urine Appearance Cloudy (Clear) A 10/30/23 00:04 Urine pH 5.5 (4.5-7.5) 10/30/23 00:04 Ur Specific Rattan 1.040 (1.000-1.030) H 10/30/23 00:04 Urine Protein Negative (Negative) 10/30/23 00:04 Urine Glucose (UA) Negative (Negative) 10/30/23 00:04 Urine Ketones Trace (Negative) H 10/30/23 00:04 Urine Blood 2+ (Negative) H 10/30/23 00:04 Urine Nitrite Negative (Negative) 10/30/23 00:04 Urine Bilirubin Negative (Negative) 10/30/23 00:04 Urine Urobilinogen Negative (Negative) 10/30/23 00:04 Ur Leukocyte Esterase Trace (Negative) H 10/30/23 00:04 Urine WBC (Auto) 10-30 /hpf (0-5) H 10/30/23 00:04 Urine RBC (Auto) 5-10 /hpf (0-4) H 10/30/23 00:04 U Hyaline Cast (Auto) 5-10 /lpf (0-5) H 10/30/23 00:04 U Epithel Cells (Auto) >30 /lpf (0-5) H 10/30/23 00:04 Urine Bacteria (Auto) Negative (Negative) 10/30/23 00:04 Urine Crystals Not Reportable 10/30/23 00:04 Calcium Oxalate Crystal Present (None Prsent) A 10/30/23 00:04 Impressions Chest CTA 10/29/23 22:10 Exam(s): CTA CHEST IV Amt: 117 ml opti 320 EXAM: CT Angiography Chest With Intravenous Contrast CLINICAL HISTORY: PE. TECHNIQUE: Axial computed tomographic angiography images of the chest with intravenous contrast. CTDI is 38 mGy and DLP is 846.84 mGy-cm. Automated exposure control was utilized for the study. A dose lowering technique was utilized adhering to the principles of ALARA. MIP reconstructed images were created and reviewed. COMPARISON: No relevant prior studies available. FINDINGS: Pulmonary arteries: Unremarkable. No pulmonary embolus. Aorta: No acute findings. No thoracic aortic aneurysm. Lungs: Interseptal thickening is concerning for pulmonary edema. No mass. Pleural space: Unremarkable. No significant effusion. No pneumothorax. Heart: Unremarkable. No cardiomegaly. No significant pericardial effusion. No evidence of RV dysfunction. Bones/joints: There are degenerative changes of the spine. No acute fracture. No dislocation. Soft tissues: Bilateral breast prosthesis are noted. Lymph nodes: Unremarkable. No enlarged lymph nodes. IMPRESSION: 1. No pulmonary embolus. 2. Interseptal thickening is concerning for pulmonary edema. Electronically signed by: Lizzy Laura MD 10/29/23 23:[address] 10/29/23 22:10 Exam(s): CT HEAD Without Contrast EXAM: CT Head Without Intravenous Contrast CLINICAL HISTORY: JEAN. TECHNIQUE: Axial computed tomography images of the head/brain without intravenous contrast. CTDI is 35.79 mGy and DLP is 546.36 mGy-cm. Automated exposure control was utilized for the study. A dose lowering technique was utilized adhering to the principles of ALARA. COMPARISON: No relevant prior studies available. FINDINGS: Brain: Unremarkable. No significant white matter disease. No intracranial hemorrhage, mass-effect or midline shift. No abnormal extra axial fluid. No evidence of acute infarct. Ventricles: Unremarkable. No ventriculomegaly. Bones/joints: Unremarkable. No acute fracture. Soft tissues: Unremarkable. Sinuses: Unremarkable as visualized. No acute sinusitis. Mastoid air cells: Unremarkable as visualized. No mastoid effusion. IMPRESSION: No acute intracranial finding. Electronically signed by: Lizzy Laura MD 10/29/23 23:43 PM Venous Doppler Study 10/30/23 22:10 Exam(s): US VENOUS RIGHT LOWER EXTREMITY EXAM: US Duplex Right Lower Extremity Veins CLINICAL HISTORY: Pain. TECHNIQUE: Real-time duplex ultrasound scan of the right lower extremity veins integrating B-mode two-dimensional vascular structure, Doppler spectral analysis, color flow Doppler imaging and compression. COMPARISON: No relevant prior studies available. FINDINGS: Deep veins: Unremarkable. No DVT in the visualized common femoral, femoral, proximal deep femoral or popliteal veins. The veins demonstrate normal color flow, are normally compressible, with normal phasic flow and/or augmentation response. Superficial veins: Unremarkable. No thrombus in the visualized great saphenous vein. Soft tissues: No acute findings. No popliteal cyst. IMPRESSION: No deep vein thrombosis of the right lower extremity. Electronically signed by: Lizzy Laura MD 10/30/23 00:32 AM ECG Additional Comments: ECG. Normal sinus rhythm rate of 97. Nonspecific T wave abnormality. Code Status & VTE Plan VTE Prophylaxis Plan VTE Prophylaxis will be ordered: Yes
[2023-10-30] MEDS ORDERED: NITROGLYCERIN SL 0.4 MG/TAB TAB SL PRN (05:56)
[2023-10-30] MEDS ORDERED: traZODone HCL 50 MG TAB PO PRN (05:56)
[2023-10-30] MEDS ORDERED: POLYETHYLENE (MIRALAX) 17 GM PACK PO PRN (05:56)
[2023-10-30] MEDS: ACETAMINOPHEN 325 MG TAB PO PRN (06:49)
--- NOTE | 2023-10-30 07:39 | XRay Report ---
XR chest 1V not portable HISTORY: 33 years-old Female Chest pain, nonspecific COMPARISON: CTA chest of same day TECHNIQUE: PA view of the chest FINDINGS: Cardiomediastinal and hilar silhouettes are within normal limits. Bilateral breast implants. No pneum othorax, pleural effusion or airspace consolidation. The bones appear normal. IMPRESSION: No acute process. ACT 112: Negative or not required by law. The above report was generated using voice recognition software. It may contain grammatical, syntax o r spelling errors. Electronically signed by: Jaydon Aguayo M.D. 10/30/2023 7:38 AM
[2023-10-30 08:45] LABS: Basophils # (auto) 0.04 K/uL (0.00-0.20); Basophils % (auto) 0.6 %; Eosinophils # (auto) 0.17 K/uL (0.00-0.50); Eosinophils % (auto) 2.4 %; Hematocrit (blood only) 30.4 % (37.0-47.0); Hemoglobin 9.7 g/dl (12.0-16.0); Immature Granulocytes # (auto) 0.02 K/uL (0.01-0.20); Immature Granulocytes % (auto) 0.3 %; Lymphocytes # (auto) 2.06 K/uL (1.20-3.40); Lymphocytes % (auto) 29.4 %; Mean Corpuscular Hemoglobin 26.5 pg (25.0-34.0); Mean Corpuscular Hgb Conc 31.9 g/dL (32.0-36.0); Mean Corpuscular Volume 83.1 fL (80.0-100.0); Mean Platelet Volume 9.1 fL (9.4-12.4); Monocytes # (auto) 0.62 K/uL (0.11-0.59); Monocytes % (auto) 8.9 %; Neutrophils # (auto) 4.09 K/uL (1.40-6.50); Neutrophils % (auto) 58.4 %; Platelet Count 335 K/uL (130-400); RDW Coefficient of Variation 14.6 % (11.5-14.5); RDW Standard Deviation 43.9 fL (36.4-46.3); Red Blood Count 3.66 M/uL (4.20-5.40)
[2023-10-30 08:53] LABS: Anion Gap 7 (3-11); BUN Creatinine Ratio 16.7 (10-20); Blood Urea Nitrogen 12 mg/dl (6-23); Calcium 8.3 mg/dl (8.6-10.3); Carbon Dioxide 24 mmol/L (21-32); Chloride 105 mmol/L (98-107); Est GFR (African American) 126.6 ml/min; Est GFR (Non-African American) 109.3 ml/min; Glucose 94 mg/dl (70-99(Fasting)); Potassium 3.9 mmol/L (3.5-5.1); Sodium 136 mmol/L (136-145)
[2023-10-30 08:59] LABS: Troponin I High Sensitivity < 2.3 pg/ml (0-14)
[2023-10-30] MEDS: buPROPion SR 150 MG TABCR PO SCH (09:55)
[2023-10-30] MEDS: NALTREXONE HCL 50 MG TAB PO SCH (09:55)
[2023-10-30] MEDS: RIZATRIPTAN BENZOATE 10 MG TAB PO PRN (10:35)
--- OUTSIDE RECORDS SUMMARY | 2023-10-30 11:38 | External Medical Summary | Summary of Care ---
Author Name Unknown Organization [facility] Address [address] [place] [address] Phone [phone] Care Team Providers Care Global Analytics Head Name Role Phone David Pinzon MD Primary Care Provider + Encounter Details Date Type Department Care Team ([facility] st Contact Info) Description 10/15/2023 Result Scan Unspecified Department Tiff Gifford MD [address] [place] [address] <No scans attached> Allergies Active Allergy Reactions Criticality Noted Date Comments Latex Rash 07/21/2013 Local contact rash only. documented as of this encounter (statuses as of 10/18/2023) Medications Medication Sig Dispensed Refills Start Date End Date Status Acetaminophen 325 MG Oral Capsule Take by mouth. As needed 0 Active ibuprofen (MOTRIN) 200 MG Tablet Take 1 Tablet by mouth every 4 hours as needed for Pain. 0 Active traZODone HCl 50 MG Oral Tablet (Desyrel) Take 1 Tablet by mouth at bedtime. As needed for sleep 30 Tablet 5 05/21/2023 Active Rizatriptan Benzoate 10 MG Oral Tablet Disintegrating (Maxalt-PATIENT CARE COORDINATOR)Indicatio ns:Nonintractable headache, unspecified chronicity pattern, unspecified headache type Take 1 Tablet by mouth as needed for Migraine. at onset of headache, may repeat every 2 hours. No more than 3 pills in 24 hours 20 Tablet 3 05/21/2023 Active FLUoxetine HCl 40 MG Oral Capsule (PROzac)Indications:G eneralized anxiety disorder Take 1 Capsule by mouth in the morning. 90 Capsule 3 06/21/2023 Active Topiramate 25 MG Oral Tablet (Topamax)Indications: Migraine variant 25 mg one tab by mouth x 7 days, 25 mg twice a day x 7 days. Increase to 25 mg 1 tab in the morning and 2 tabs at night (total 3 tabs) after 2 weeks if she is tolerating. 60 Tablet 5 06/21/2023 Active buPROPion HCl ER (SR) 150 MG Oral Tablet Extended Release 12 Hour (Wellbutrin SR) Take 1 tab by mouth once a day for 1 week then take 1 tab twice a day (morning & late afternoon) 60 Tablet 4 06/29/2023 Active Naltrexone HCl 50 MG Oral Tablet (Revia) Take 1/2 tab by mouth once a day for 1 week then take 1/2 tab twice a day (morning & late afternoon) 30 Tablet 4 06/29/2023 Active Nystatin 993013 UNIT/GM External Powder (Nystop) Apply topically to affected area 3 times a day. Apply to stomach 60 g 1 06/29/2023 Active FLUoxetine HCl 20 MG Oral Capsule (PROzac)Indications:G eneralized anxiety disorder Take 1 Capsule by mouth in the morning. To be taken with 40mg, total of 60mg. 90 Capsule 0 08/04/2023 Active Acetaminophen 325 MG Oral Tablet (Tylenol) Take 2 Tablets by mouth every 6 hours as needed for Pain, Mild. 30 Tablet 1 09/22/2023 Active Ibuprofen 600 MG Oral Tablet (Motrin) Take 1 Tablet by mouth every 6 hours as needed (pain). With food. 30 Tablet 1 09/22/2023 Active Docusate Sodium 100 MG Oral Capsule (Colace) Take 1 Capsule by mouth in the morning and 1 Capsule before bedtime. 60 Capsule 1 09/22/2023 Active Simethicone 80 MG Oral Tablet Chewable (Mylicon) Take 1 Tablet by mouth every 6 hours as needed for Gas. 30 Tablet 0 09/22/2023 Active oxyCODONE-Acetaminoph en 5-325 MG Oral Tablet (Percocet) Take 1 Tablet by mouth every 4 hours as needed for Pain, Severe. 10 Tablet 0 09/22/2023 Active Ondansetron 4 MG Oral Tablet Disintegrating (Zofran) Place 1 Tablet on tongue every 8 hours as needed for Nausea. dissolve on tongue. 20 Tablet 1 10/15/2023 Active documented as of this encounter (statuses as of 10/18/2023) Active Problems Problem Noted Date Diagnosed Date Body mass index (BMI) of 40.0 to 44.9 in adult 0 09/21/2022 Overview: Per Obesity protocol Well adult exam 10/31/2019 Overview: Declines flu shots--feels very achy after Class 2 obesity due to exces s calories without serious comorbidity with body mass index (BMI) of 37.0 to 37.9 in adult 10/31/2019 Mitral valve regurgitation 01/02/2015 Overview: 12/26 i/vi murmur on left lat decubitus Dysthymia 04/12/2013 Generalized anxiety disorder 04/12/2013 documented as of this encounter (statuses as of 10/18/2023) Resolved Problems Problem Noted Date Diagnosed Date Resolved Date COVID-19 virus infection 07/29/2020 Antepartum anemia complicating 04/15/2018 05/26/2018 Overview: Mild. Iron every other day, high iron foods. Abnormal glucose tolerance i n mother complicating 03/24/2018 05/26/2018 Overview: Glucola elevated, 3hr GTT ordered, passed. Uterine size date discrepancy 03/24/2018 05/26/2018 Overview: Growth u/s at 29w, weight 90-95th percentile Supervision of other normal , antepartum 01/06/2018 07/06/2018 Obesity, Class II, BMI 35-39 .9, isolated (see actual BMI) 12/09/2017 05/26/2018 Class 3 severe obesity due t o excess calories without serious comorbidity with body mass index (BMI) of 40.0 to 44.9 in adult 12/09/2017 Overview: Passed Early Glucola. 05/13/2018 Tdap Vaccine administered per clinic protocol. Pt given VIS(vaccine information sheet) Sary Coffey RN Class 2 obesity due to exces s calories in adult 10/29/2017 12/09/2017 Hx of pre-eclampsia in prior , currently 10/29/2017 05/26/2018 History of gestational diabe delonte in prior , currently 10/29/2017 05/26/2018 Rhinitis, nonallergic 02/22/20142017 Latex allergy 11/04/2012 02/11/2017 Encounter for IUD insertion 10/05/2012 12/09/2017 Overview: Mirena IUD placed 10/05/12 Need for rubella vaccination 03/17/2011 04/12/2013 Encounter for supervision of other normal 03/12/2011 11/05/2011 Overview: Patient declines flu vaccine pt will check with employer. 06/16/2011 Sary Coffey RN ICD-10 update of inactive term Mild pre-eclampsia 03/12/2011 2 Overview: Reports preeclampsia with last , developed at 41wks, delivered at approximately 42wks. Baseline labs and 24hr urine protein completed-- 24hr urine protein 0.076 Abnormal maternal glucose to lerance, complicating , childbirth, or the puerperium, unspecified as to episode of care 03/12/2011 11/05/2011 Overview: Gestational diabetes with last . Early glucola 106, 28 wk glu 138 - 3 hr gtt wnl Previous delivery, antepartum condition or complication 03/12/2011 05/26/2018 Overview: Performed in [place]. Release of record signed to obtain OR report. Reports blood loss and received 2 units of PRBC ERCS here. Plans ERCS for this third as well - scheduled for Jun 02, 2018, Dr. Mccollum. Desires BTL as well. Plans to discuss with Dr. Mccollum at upcoming visit Surveillance of previously p rescribed contraceptive pill 09/28/2008 03/17/2011 Iron deficiency anemia 09/28/200812/09 documented as of this encounter (statuses as of 10/18/2023) Immunizations Name Administration Dates Next Due H1N1 2009 Influenza, IM 09/20/2009 MMR - Measles/Mumps/Rubella Vaccine 11/04/2012 PPD 02/11/2017,05/18/2014,09/21/2009 Seasonal Influenza, Split, I IV3, With Preserve, Inj 08/15/2014,05/17/2014(Deferred: Patient Refused),11/04/2012,09/17/2011,09/20/2009 TDAP (age 10 and older)(Boostrix) 05/13/2018 TDAP (age 11 and older)(Adacel) 09/13/2009 documented as of this encounter Social History Tobacco Use Types Packs/Day Years Used Date Smoking Tobacco: Former Cigarettes 0.5 5 Q uit: 03/12/2011 Smokeless Tobacco: Never Comments:quit with +HPT 02/13 / mother in law smokes Alcohol Use Standard Drinks/Week Comments No 0 (1 standard drink = 0.6 oz pur e alcohol) PHQ-2 Answer Date Recorded PHQ Adult Total Score 3 08/04/2023 Hunger Vital Sign Answer Date Recorded Within the past 12 months, y ou worried that your food would run out before you got the money to buy more. Never true 08/04/20 23 Within the past 12 months, t he food you bought just didn't last and you didn't have money to get more. Never true 08/04/2023 Sex and Gender Information Value Date Recorded Sex Assigned at Female 08/03/2022 9:52 AM EST Gender Identity Female 08/03/2022 9:52 AM EST Sexual Orientation Straight 08/03/2022 9: 52 AM EST Job Start Date Occupation Industry Not on file Not on file Not on file documented as of this encounter Plan of Treatment Upcoming Encounters Date Type Department Care Team (Late st Contact Info) Description 10/27/2023 9:15 AM EST Office Visit Gynecology/Obstetrics [facility] [address] [place] [address] Tiff Gifford MD [address] [address] 11/25/2023 10:00 AM EDT Office Visit Gynecology/Obstetrics [facility] [address] [place] [address] Renetta Noonan CRNP [address] [place] [id number] 12/13/2023 10:20 AM EDT Office Visit Nutrition & Weight Management, [facility] [address] [place] [address] Gosia Shannon PA-C [address] [place] [address] 02/16/2024 8:20 AM EDT Office Visit Family Practice [facility] [address] [place] [address] David Pinzon MD [address] [place] [address] Health Maintenance Due Date Last Done Comments Hepatitis B (1 of 3 - 3-dose series) 1990 COVID-19 Vaccine (#1) 1989 Influenza Vaccine (FLU shot) (#1) 2023 08/15/2014, 11/04/2012, 09/17/2011, Additional history exists Depression Screening 08/04/2024 08/04/2023 Pap Smear 10/29/2025 10/29/2022, 05/15, 09/22/2012, Additional history exists Cervical Cancer Screening 10/29/2027 HPV/Co-Test 10/29/2027 10/29/2022 DTaP,Tdap,and Td Vaccines (3 - Td or Tdap) 05/13/2028 05/13/2018, 09/13/2009 GARDASIL-HPV IMMUNIZATION SERIES Aged Out No longer eligible based on patient's age to complete this topic MENINGOCOCCAL (MENACTRA/MENVEO) Aged Out No longer eligible based on patient's age to complete this topic Pneumococcal Vaccine: Pediatrics (0 to 5 Years) and At-Risk Patients (6 to 64 Years) Aged Out No longer eligible based on patient's age to complete this topic documented as of this encounter Medical Devices Not on filedocumented as of this encounter Procedures Procedure Name Priority Date/Time Associated Diagnosis Comments PATHOLOGY SCANNED RESULT 10/15/2023 documented in this encounter Results * PATHOLOGY SCANNED RESULT (10/15/2023) 10/15/2023 Tiff Gifford MD PATHOLOGY documented in this encounter Care Teams Global Analytics Head Relationship Specialty Start Date End Date David Pinzon MD [address] [facility] [place] [address] PCP - General Family Medicine 08/03/22 documented as of this encounter
--- OUTSIDE RECORDS SUMMARY | 2023-10-30 11:38 | External Medical Summary | Summary of Care ---
Author Name Unknown Organization [facility] Address [address] [place] [address] Phone [phone] Care Team Providers Care Harpoon Engagement Planning Operator Name Role Phone David Pinzon MD Primary Care Provider + Encounter Details Date Type Department Care Team ([facility] st Contact Info) Description 10/15/2023 Orders Only Gynecology/Obstetrics [facility] [address] [place] [address] Francesca Loo PA-C [address] [place] [address] Allergies Active Allergy Reactions Criticality Noted Date Comments Latex Rash 07/21/2013 Local contact rash only. documented as of this encounter (statuses as of 10/15/2023) Medications Medication Sig Dispensed Refills Start Date [...] Rizatriptan Benzoate 10 MG Oral Tablet Disintegrating (Maxalt-VETERINARIAN)Indicatio ns:Nonintractable headache, unspecified chronicity pattern, unspecified headache [...] afternoon) 30 Tablet 4 06/29/2023 Active Nystatin 986906 UNIT/GM External Powder (Nystop) Apply topically to [...] as of this encounter (statuses as of 10/15/2023) Active Problems Problem Noted Date Diagnosed Date [...] as of this encounter (statuses as of 10/15/2023) Resolved Problems Problem Noted Date Diagnosed Date [...] or complication 03/12/2011 05/26/2018 Overview: Performed in [place]. Release of record signed to obtain OR [...] as of this encounter (statuses as of 10/15/2023) Immunizations Name Administration Dates Next Due H1N1 [...] 10/27/2023 9:15 AM EST Office Visit Gynecology/Obstetrics [facility] [address] [place] [address] Tiff Gifford MD [address] [place] [address] 11/25/2023 10:00 AM EDT Office Visit Gynecology/Obstetrics [facility] [address] [place] [address] Renetta Noonan CRNP [address] [place] [address] 12/13/2023 10:20 AM EDT Office Visit Nutrition & Weight Management, [facility] [address] [place] [address] Gosia Shannon PA-C [address] [place] [address] 02/16/2024 8:20 AM EDT Office Visit Family Practice [facility] [address] [place] [address] David Pinzon MD [address] [place] [address] Health Maintenance Due Date Last Done Comments [...] Not on filedocumented as of this encounter Care Teams Harpoon Engagement Planning Operator Relationship Specialty Start Date End Date David Pinzon MD [address] [place] [address] PCP - General Family Medicine 08/03/22 documented as of this encounter
--- OUTSIDE RECORDS SUMMARY | 2023-10-30 11:38 | External Medical Summary | Summary of Care ---
Author Name Unknown Organization [facility] Address [address] [place] [address] Phone [phone] Care Team Providers Care Personal Financial Planner Name Role Phone David Pinzon MD Primary Care Provider + Encounter Details Date Type Department Care Team ([facility] Contact Info) Description 10/15/2023 Result Scan Unspecified Department <No scans attached> Allergies Active Allergy Reactions [...] Rizatriptan Benzoate 10 MG Oral Tablet Disintegrating (Maxalt-ASSISTANT GUEST SERVICES MANAGER)Indicatio ns:Nonintractable headache, unspecified chronicity pattern, unspecified headache [...] afternoon) 30 Tablet 4 06/29/2023 Active Nystatin [id number] UNIT/GM External Powder (Nystop) Apply topically to [...] Pain, Severe. 10 Tablet 0 09/22/2023 Active documented as of this encounter (statuses [...] or complication 03/12/2011 05/26/2018 Overview: Performed in [place]. Release of record signed to obtain OR [...] 10/27/2023 9:15 AM EST Office Visit Gynecology/Obstetrics [facility] [address] [place] [address] Tiff Gifford MD [address] [place] [address] 11/25/2023 10:00 AM EDT Office Visit Gynecology/Obstetrics [facility] [address] [place] [address] Renetta Noonan CRNP [address] [place] [address] 12/13/2023 10:20 AM EDT Office Visit Nutrition & Weight Management, [facility] [address] [place] [address] Gosia Shannon PA-C [address] [place] [address] 02/16/2024 8:20 AM EDT Office Visit Family [facility] [address] [place] [address] David Pinzon MD [address] [place] [address] Health Maintenance Due Date Last Done Comments [...] Procedure Name Priority Date/Time Associated Diagnosis Comments OUTSIDE LAB RESULTS 10/15/2023 documented in this encounter Results * OUTSIDE LAB RESULTS (10/15/2023) 10/15/2023 No Physician Data Unknown LABORATORY documented in this encounter Care Teams Personal Financial Planner Relationship Specialty Start Date End Date David Pinzon MD [address] [place] [address] PCP - General Family Medicine 08/03/22 documented as of this encounter
--- OUTSIDE RECORDS SUMMARY | 2023-10-30 11:38 | External Medical Summary | Summary of Care ---
Author Name Unknown Organization [facility] Address [address] [place] [address] Phone [phone] Care Team Providers Care Curriculum Developer Name Role Phone David Pinzon MD Primary Care Provider + Reason for Visit * Reason Comments Post-Op Encounter Details Date Type Department Care Team (Late st Contact Info) Description 10/27/2023 9:15 AM EST Office Visit Gynecology/Obstetric s [facility] [address] [place] [address] Tiff Gifford MD [address] [place] [address] Postoperative state* Allergies Active Allergy Reactions Criticality Noted Date Comments Latex Rash 07/21/2013 Local contact rash only. documented as of this encounter (statuses as of 10/27/2023) Medications Medication Sig Dispensed Refills Start Date [...] Rizatriptan Benzoate 10 MG Oral Tablet Disintegrating (Maxalt-SUPERVISOR MELT HOUSE)Indicatio ns:Nonintractable headache, unspecified chronicity pattern, unspecified headache [...] afternoon) 30 Tablet 4 06/29/2023 Active Nystatin [id number] UNIT/GM External Powder (Nystop) Apply topically to [...] as of this encounter (statuses as of 10/27/2023) Active Problems Problem Noted Date Diagnosed Date [...] as of this encounter (statuses as of 10/27/2023) Resolved Problems Problem Noted Date Diagnosed Date [...] or complication 03/12/2011 05/26/2018 Overview: Performed in [place]. Release of record signed to obtain OR [...] as of this encounter (statuses as of 10/27/2023) Immunizations Name Administration Dates Next Due H1N1 [...] on file documented as of this encounter Last Filed Vital Signs Vital Sign Reading Time Taken Comments Blood Pressure 112/72 10/27/2023 9:10 AM EST Pulse 97 10/27/2023 9:10 AM EST Temperature 36.9 C (98.5 F) 10/27/2023 9:10 AM ES T Respiratory Rate - - Oxygen Saturation - - Inhaled Oxygen Concentration - - Weight 100.2 kg (221 lb) 10/27/2023 9:10 AM EST Height 161.3 cm (5' 3.5") 10/27/2023 9:10 AM EST Body Mass Index 38.53 10/27/2023 9:10 AM EST documented in this encounter Progress Notes * Tiff Gifford MD - 10/27/2023 9:28 AM EST Christen Michael; [id number]; Date of Visit: 10/27/2023 The patient is a 33 year old who presents today for a post-op check. The patient is s/p a RA lysis of adhesions, total laparoscopic hysterectomy, bilateral salpingectomy, and cystoscopy on 10/15/2023. The patient states that she had chest pain over the weekend that resolved. Patient also reportsbloating. Denies N/V, fevers, chills, or SOB. Vaginal spotting discontinued after surgery. Denies abnormal vaginal discharge. Denies urinary or bowel symptoms. PHYSICAL EXAMINATION: BP 112/72 | Pulse 97 | Temp 36.9 C (98.5 F) | Ht 1.613 m (5' 3.5") | Wt 100.2 kg (221 lb) | LMP09/14/2023 | BMI 38.53 kg/m | BSA 2.12 m Abdomen: Soft. Nontender. No masses. Incisions: healing well. No erythema or edema. IMPRESSION: 33 year old s/p RA lysis of adhesions, total laparoscopic hysterectomy, bilateral salpingectomy, and cystoscopy on 10/15/2023. PLAN: -Pathology and OR photos reviewed with Patient -Reviewed post-op instructions. Reviewed if SOB or CP, then recommend proceeding to ED to rule out DVT or PE -Bloating: recommend continued use of simethicone, walking, azalea keara or chewing gum -RTC in 6-8 weeks for post-op pelvic exam -All questions answered Tiff Gifford MD 10/27/2023 9:29 AM Gynecology/Obstetrics [address] [place] [address] documented in this encounter Nursing Notes * Loren Plasencia LPN - 10/27/2023 9:10 AM EST Here for post op lap hysterectomy 2/ documented in this encounter Plan of Treatment Upcoming Encounters Date Type Department Care Team (Late st Contact Info) Description 11/25/2023 10:00 AM EDT Office Visit Gynecology/Obstetrics [facility] [address] [place] [address] Renetta Noonan CRNP [address] [place] [address] 12/08/2023 1:45 PM EDT Office Visit Gynecology/Obstetrics [facility] [address] [place] [address] Tiff Gifford MD [address] [place] [address] 12/13/2023 10:20 AM EDT Office Visit Nutrition & Weight Management, [facility] [address] [place] [address] Gosia Shannon PA-C [address] [place] [address] 02/16/2024 8:20 AM EDT Office Visit Family Practice [facility] [address] [place] [address] David Pinzon MD [address] [place] [address] Health Maintenance Due Date Last Done Comments [...] Not on filedocumented as of this encounter Visit Diagnoses Diagnosis Postoperative state- Primary Other postprocedural status documented in this encounter Care Teams Curriculum Developer Relationship Specialty Start Date End Date David Pinzon MD [address] [place] [address] PCP - General Family Medicine 08/03/22 documented as of this encounter
--- NOTE | 2023-10-30 14:37 | Cardiology Consultation ---
Date of Consultation October 30, 2023 Assessment & Plan (1) Chest pain: 33-year-old female without history of heart disease who is 15 days post hysterectomy presented with headache, right leg pain, and transient chest discomfort. She had shortness of breath about a week ago. * Lower extremity venous duplex was negative for right lower leg DVT * A CT angiogram was performed and the report describes pulmonary embolism and interseptal thickening concerning for pulmonary edema. After reviewing the patient's case in entirety and reviewing her echocardiogram, with taking into account high-sensitivity troponin that is undetectable x 3 measurements, and a normal proBNP level of 25 PG per mL, clinically she does not seem to have congestive heart failure. * I reviewed the case with one of our local staff radiologist, Dr. Coon, who reviewed the CT again and agreed with the initial report there is no evidence of pulmonary embolism, and also may note that the findings do not appear consistent with congestive heart failure but rather mild atelectasis. * I feel the initial EKG was technically limited due to artifact, repeat tracing this morning is of excellent technical quality and is normal * Echocardiogram reassuring with normal biventricular systolic function, normal diastolic function. * At present, I believe her workup is reassuring. I do not think she clinically has congestive heart failure, and I do not think her chest discomfort is suggestive of an acute coronary syndrome. She states that she has a history of anxiety and that the chest symptoms did not start until after she was in the car on the way to the hospital for headache and right leg pain. * Pretest probability of underlying coronary heart disease is low. * No further cardiac testing felt to be indicated at this time * Discharge could be considered when patient is feeling well from a headache standpoint. * Recommend patient ambulates in the hallway to make sure that she feels well * Recommend incentive spirometer to start now every 4 hours and for the patient to continue at home * Case discussed with of the hospital service for the purpose of coordinating care. I spent a total of 55 minutes on the date of service in preparation, delivery, and documentation of the care provided to this patient, excluding any time spent in the performance of separately billed services. History of Present Illness Attending Physician: Qi Berry MD History of Present Illness Christen Michael is a 33 year old female seen in cardiology consultation per the request of Dr Fermin for the evaluation of chest pain and CHF. Patient seen in room 453, accompanied by he , Ron, at the bedside. She was comfortable at the time of my assessment. She had recently undergone robotic assisted total laparoscopic hysterectomy performed on 10/15/2023 for the indication of heavy menstrual bleeding. She has a history of migraine headaches. Yesterday she felt severe headache as well as a pressure sensation in her right lower leg. She took her usual migraine headache medications as well as her pain medications at that were prescribed postdischarge from the hysterectomy but her headache was not alleviated. Her family was taking her to the emergency department and she noted onset of mild chest discomfort while in the car which she did not have yesterday before that time. About a week ago she had intermittent sensation of shortness of breath and difficulty taking a deep breath in. At the time my assessment the patient was comfortable in bed. Denied chest discomfort, shortness of breath, mild headache noted, but improved compared to yesterday. Family History: Denies history of coronary heart disease in either parents. Maternal grandfather of congestive heart failure, likely in his 60s Paternal grandfather of presumed myocardial infarction in his 60s Social History: She has never been a smoker She is [id number] mother with 3 children Allergies Allergy/AdvReac Type Severity Reaction Status Date / Time latex Allergy Intermediate Hives Verified 10/30/23 00:44 Home Medications Medication Instructions Recorded Confirmed Type acetaminophen 500 mg tablet 1,000 mg PO Q6H PRN Fever Or Pain 07/31/20 10/30/23 History bupropion HCl 150 mg tablet,12 hr 150 mg PO BID 10/08/23 10/30/23 History sustained-release (Wellbutrin SR) fluoxetine 60 mg tablet 60 mg PO QPM 10/08/23 10/30/23 History naltrexone 50 mg tablet 50 mg PO BID 10/08/23 10/30/23 History rizatriptan 10 mg tablet (Maxalt) 10 mg PO DIRECTED PRN Migraine 10/08/23 10/30/23 History Headache topiramate 25 mg tablet (Topamax) 25 mg PO QPM 10/08/23 10/30/23 History trazodone 50 mg tablet 50 mg PO HS PRN Sleep 10/08/23 10/30/23 History Patient History Medical History Abnormal uterine bleeding (AUB) History of migraine Anxiety Obesity per pt, reason for naltrexone History of blood transfusion 2007 with delivery Heart murmur History of years ago with only; no current murmur per patient Surgical History History of bilateral breast implants History of foot surgery Rt Nausea and vomiting after administration of anesthetic agent Patient reports nausea with Anesthesia History of section x3 Family History Father Family history of diabetes mellitus Social History Smoking Status: Never smoker Second Hand Exposure: Yes; Do You Dip or Chew Tobacco: No; Hx Alcohol Use: Yes Hx Substance Use: No Preferred Language: Maltese Communication Ability: Effective Subacute Nurse Required: No Beliefs That Will Affect Care: None marital status: Current Living Situation: Family Feels Safe at Home: Yes Safety Concerns: Feels Safe At This Time Assistive Devices: Glasses Review of Systems Review of Systems: All systems reviewed & are unremarkable except as noted in HPI & below Physical Exam Constitutional: WD/WN, vitals as above Respiratory: normal respiratory effort, lungs clear to auscultation Cardiovascular: RRR, no murmur, no edema Gastrointestinal (Abdomen): Laparoscopic port incisions inspected, and were clean dry and intact, with no erythema Neurologic: PERRL, EOMI, accommodation nl, no face palsy, no dysarthria Results & Data Vital Signs (Past 12 Hours) Vital Signs Temp Pulse Pulse Resp BP BP Pulse Ox 10/30/23 12:07 36.9 C 67 115/76 96 10/30/23 07:35 36.6 C 73 121/71 99 10/30/23 07:00 69 10/30/23 05:45 10/30/23 05:45 36.6 C 66 18 123/77 99 10/30/23 05:32 67 17 117/68 97 10/30/23 04:02 63 16 120/60 96 O2 Del Method 10/30/23 12:07 Room Air 10/30/23 07:35 Room Air 10/30/23 07:00 10/30/23 05:45 Room Air 10/30/23 05:45 Room Air 10/30/23 05:32 Room Air 10/30/23 04:02 Room Air Laboratory Results Cardiac Enzymes 10/29/23 10/30/23 10/30/23 Range/Units 20:01 00:56 08:12 AST 14 (13-39) U/L Troponin I High Sens < 2.3 < 2.3 < 2.3 (0-14) pg/ml B-Natriuretic Peptide 25 (0-100) pg/ml Coagulation 10/29/23 10/30/23 Range/Units 20:01 00:56 PT 10.9 (9.0-12.0) Seconds APTT 37 H (21-31) Seconds B-Natriuretic Peptide 25 (0-100) pg/ml CBC 10/29/23 10/30/23 Range/Units 20:01 08:12 WBC 9.35 7.00 (4.8-10.8) K/ul RBC 4.07 L 3.66 L (4.20-5.40) M/uL Hgb 10.8 L 9.7 L (12.0-16.0) g/dl Hct 33.6 L 30.4 L (37.0-47.0) % Plt Count 383 335 (130-400) K/uL Neut # (Auto) 5.32 4.09 (1.40-6.50) K/uL Lymph # (Auto) 3.08 2.06 (1.20-3.40) K/uL Hickman # (Auto) 0.65 H 0.62 H (0.11-0.59) K/uL Eos # (Auto) 0.22 0.17 (0.00-0.50) K/uL Baso # (Auto) 0.06 0.04 (0.00-0.20) K/uL Comprehensive Metabolic Panel 10/29/23 10/30/23 Range/Units 20:01 08:12 Sodium 136 136 (136-145) mmol/L Potassium 3.7 3.9 (3.5-5.1) mmol/L Chloride 104 105 (98-107) mmol/L Carbon Dioxide 22 24 (21-32) mmol/L BUN 12 12 (6-23) mg/dl Creatinine 0.71 0.72 (0.6-1.2) mg/dl Glucose 130 H 94 (70-99(Fasting)) mg/dl Calcium 9.1 8.3 L (8.6-10.3) mg/dl AST 14 (13-39) U/L ALT 12 (7-52) U/L Alkaline Phosphatase 76 (34-104) U/L Total Protein 7.5 (6.0-8.3) gm/dl Albumin 4.0 (3.4-5.0) gm/dl Diagnostic Findings EKG performed 10/29/20232000 and interpreted independently: Sinus rhythm at 97 bpm, poor R wave progression noted in the anterior precordial leads. Baseline artifact, nonspecific T wave flattening noted in the lateral precordial leads. Repeat tracing performed 10/30/2023 at 6:10 AM and interpreted independently: Sinus rhythm at 60 bpm. Excellent quality tracing. Normal ST segments. Compared to the previous tracing from 10/29/2023, this is a better quality tracing, the artifact has resolved, nonspecific T wave flattening has resolved. Echocardiogram performed 10/30/2023 and interpreted independently: The left ventricular myocardial thickness is normal, normal left ventricular wall motion, normal LVEF in the range of 55-60%. The left ventricular diastolic function is normal. The Doppler findings do not suggest pulmonary hypertension. There is no significant valvular heart disease. There is no interatrial shunt observed with the administration of agitated saline contrast.
--- NOTE | 2023-10-30 14:57 | Discharge Summary ---
Date of Service October 30, 2023 Admission HPI Per Admitting Provider 33-year-old female with past medical history significant for mitral valve regurgitation, obesity, dysthymia, generalized anxiety disorder who recently had a hysterectomy comes because of headache, mild chest discomfort and right leg pain started in the morning yesterday. Patient states when she came to the ER her headache was 9/10 by severity, chest pain was 1/10 with severity, right leg pain was 5 /10 in severity. Currently all the pain is resolved. Denies any blurred visions. No runny nose. No sore throat. No fever. No shortness of. No dizziness. No sweating. No nausea. Has some abdominal discomfort from recent surgery. Normal bowel movements. Normal bladder movements. Currently resting comfortably and hemodynamically stable. Imaging studies showed possible pulmonary edema. Past medical history. As mentioned above Past surgical history. . Incision of the right foot. Likely floaters. Vaginal hysterectomy 10/15/2023. Social history. . Quit smoking in 2010. Smoked 0.5 pack a day for 5 years. No alcohol use. No drug use. Family history. Mother has allergies. Father has diabetes. Paternal grandmother had breast cancer. Admission Exam Per Admitting Provider General- Not in distress Head- atraumatic Eyes- PERRL. ENT- oropharynx clear Neck- supple, no JVD. Lungs- clear to auscultation no wheezing or crackles. Heart- regular rhythm; no murmur, no gallop. Abdomen- normal bowel sounds, soft, nontender, no distension Extremities- no pretibial edema, no erythema seen. Neuro- alert, oriented ; PERRL, no facial palsy; no dysarthria; moves extremities. Skin- warm & dry Principal Diagnosis Chest pain Discharge Exam Constitutional + well hydrated; no acute distress Eyes PERRL, conjunctivae normal, anicteric sclerae ENMT external ear and nose normal, oropharynx normal Respiratory normal respiratory effort, lungs clear to auscultation Cardiovascular Rate/Rhythm: regular rate and regular rhythm S1 S2 Gastrointestinal (Abdomen) normal bowel sounds, soft, nontender, no hepatosplenomegaly Musculoskeletal no cyanosis or clubbing, extremities motor strength 5/5 No pedal edema Neurologic PERRL, EOMI, accommodation nl, no face palsy, no dysarthria Psychiatric A+Ox3, euthymic affect Discharge Data Allergies Allergy/AdvReac Type Severity Reaction Status Date / Time latex Allergy Intermediate Hives Verified 10/30/23 00:44 Consultations 10/29/23 23:56 ED Decision to Admit Stat 10/30/23 08:00 Consult Cardiology Routine Ordered Studies 10/29/23 22:10 CT angio chest PE protocol Stat CT head/brain wo con Stat 10/30/23 22:10 US venous doppler LE RT Stat Hospital Course (1) Chest pain: 33-year-old female with past medical history significant for mitral valve regurgitation, obesity, dysthymia, generalized anxiety disorder who recently had a hysterectomy comes because of headache, mild chest discomfort and right leg pain started in the morning of the previous day. Patient states when she came to the ER her headache was 9/10 by severity, chest pain was 1/10 with severity, right leg pain was 5 /10 in severity. Chest pain Currently resolved EKG today was unremarkable 2 sets of troponin negative CTA chest report noted no PE but reported concern for pulmonary edema Mine Motor Operator reviewed that with Local Radiologist who noted findings were more consistent with mild atelectasis than congestive heart failure Echocardiogram was essentially unremarkable Chest pain is resolved Headache Currently resolved Right leg pain Currently resolved Doppler negative for DVT Dysthymia Generalized anxiety disorder Continue home meds Total Time Total Time Spent Total Time Spent (In Minutes): 35 Total Time Includes: Examination of the Patient, Discharge Planning, Medication Reconciliation and Communication With Other Providers Discharge Plan Discharge Items Patient Disposition: Home - Self-Care Reason For Visit: Chest pain, Right leg pain Discharge Diagnosis: Chest pain Condition on Discharge: Good Activity: Resume your previous activity Non-emergency contact: Primary Care Provider Call non-emergency contact if: you have any medication questions Follow-up/Referrals: David Pinzon MD [Primary Care Provider] - Diet: Regular Addtl Attending Provider Instructions: Mrs Michael You came to the hospital complaining of chest pain and right leg pain. You were extensively evaluated You got CT scan, Echocardiogram, Leg ultrasound and was evaluated by Mine Motor Operator. These results were unremarkable. You are being discharged home. Please ensure follow up with your Primary Doctor. It was a pleasure taking care of you. Pending Studies at Discharge: No Stand-Alone Forms: My ZEB, Smoking Cessation Medications and DC Order Prescriptions: Continued acetaminophen 500 mg Tablet 1,000 mg PO Q6H PRN (Reason: Fever Or Pain) bupropion HCl [Wellbutrin SR] 150 mg Tablet Sustained-Release 12 Hr 150 mg PO BID trazodone 50 mg Tablet 50 mg PO HS PRN (Reason: Sleep) Rx Instructions: PER PT "HAVE BEEN TAKING ALMOST EVERY NIGHT". naltrexone 50 mg Tablet 50 mg PO BID rizatriptan [Maxalt] 10 mg Tablet 10 mg PO DIRECTED PRN (Reason: Migraine Headache) Rx Instructions: take 1 tab at onset of headache; if no relief may repeat 1 tab after at least 2 hrs; max = 3 tabs/24 hr topiramate [Topamax] 25 mg Tablet 25 mg PO QPM fluoxetine 60 mg Tablet 60 mg PO QPM Discharge Orders: Discharge Order (Routine); Ordered 10/30/23 Ordered By: Qi Berry Admission Data Admit Date/Time: 10/30/23 04:08 Attending Provider: Qi Berry I. Admit Provider: Bill Fermin Primary Care Provider: David Pinzon Other Providers: Bill Fermin; Darrian Rosen Other Interventions: Discharge Summary Assessment (RN) Last Done: 10/30/23 15:09
--- NOTE | 2023-10-30 17:44 | Electrocardiogram Report ---
Test Reason : Blood Pressure : / mmHG Vent. Rate : 097 BPM Atrial Rate : 097 BPM P-R Int : 152 ms QRS Dur : 072 ms QT Int : 350 ms P-R-T Axes : 036 019 008 degrees QTc Int : 444 ms Normal sinus rhythm Cannot rule out Anterior infarct , age undetermined Abnormal ECG When compared with ECG of 31-JUL-2020 14:33, Nonspecific T wave abnormality now evident in Anterior leads Confirmed by Donny Hickman ([id number]) on 10/30/2023 5:44:24 PM Referred By: REFERRED SELF Confirmed By:Donny Hickman
--- NOTE | 2023-10-30 18:16 | Electrocardiogram Report ---
Test Reason : Blood Pressure : / mmHG Vent. Rate : 060 BPM Atrial Rate : 060 BPM P-R Int : 178 ms QRS Dur : 080 ms QT Int : 426 ms P-R-T Axes : 050 018 020 degrees QTc Int : 426 ms Normal sinus rhythm Normal ECG When compared with ECG of 29-OCT-2023 20:01, (unconfirmed) Vent. rate has decreased BY 37 BPM Nonspecific T wave abnormality no longer evident in Anterior leads Confirmed by Donny Hickman ([id number]) on 10/30/2023 6:16:38 PM Referred By: REFERRED SELF Confirmed By:Donny Hickman
[2023-10-30] MEDS ORDERED: FLUoxetine HCL 20 MG CAP PO SCH (21:00)
[2023-10-30] MEDS ORDERED: TOPIRAMATE 25 MG TAB PO SCH (21:00)
== END 2023-10-30 15:37 | disposition home or self-care (01) | DRG 313 ==
LOC: ED 19:28 → 4W 10-30 04:08